=== PATIENT | male | born 1980 | race Caucasian/White ===

== ENCOUNTER 2018-05-07 08:51 | Inpatient (IN) | payer BC ==
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
[2018-05-07] MEDS ORDERED: MELATONIN 5 MG TABLETS PO PRN (11:11)
[2018-05-07] MEDS ORDERED: MAG HYDROX/AL HYDROX/SIMETH 30 ML UNIT-DOSE CUP PO PRN (11:11)
[2018-05-07] MEDS ORDERED: P-EPHED 60MG/TRIPROLIDI 2.5MG TABLET PO PRN (11:11)
[2018-05-07] MEDS ORDERED: MAGNESIUM CITRATE 300 ML BOTTLE PO PRN (11:11)
[2018-05-07] MEDS ORDERED: ACETAMINOPHEN 325 MG TABLET (FP) PO PRN ×2 (11:11)
[2018-05-07] MEDS ORDERED: BISMUTH SUBSALICYLATE 262 MG/15 ML BTL PO PRN (11:11)
[2018-05-07] MEDS ORDERED: cloNIDine HCL 0.1 MG TABLET PO PRN (11:11)
[2018-05-07] MEDS ORDERED: MENTHOL/PHENOL 1 EACH UD MM PRN (11:11)
[2018-05-07] MEDS ORDERED: MAGNESIUM HYDROX 2400MG/30ML ORAL SUSPENSION 30 ML CUP PO PRN (11:11)
[2018-05-07] MEDS ORDERED: IBUPROFEN 400 MG TABLET (FP) PO PRN (11:11)
[2018-05-07] MEDS ORDERED: METHADONE HCL 10 MG TABLET (FOR DETOX USE ONLY) PO ONE ×2 (11:45→23:00)
[2018-05-07] MEDS: NICOTINE 21 MG/24 HOURS TOPICAL PATCH TD SCH (12:33)
[2018-05-07] MEDS: ONDANSETRON *ODT* 4 MG TABLET SL PRN (13:33)
[2018-05-07] MEDS: diazePAM 5 MG TABLET PO SCH ×2 (14:11→22:42)
[2018-05-07 14:31] LABS: HEMATOCRIT 36.7 % (35.4-49); HEMOGLOBIN 12.3 GM/dL (11.7-16.9); MCH 28.2 pg (25.7-33.7); MCHC 33.5 g/dl (32.0-35.9); MEAN PLT VOLUME 7.9 fl (7.5-11.1); PLATELET COUNT 177 K/MM3 (134-434); RBC 4.37 M/mm3 (4.00-5.60); RDW 13.3 % (11.9-15.9)
[2018-05-07 14:49] LABS: ALBUMIN 3.6 g/dl (3.4-5.0); ALK PHOS 67 U/L (45-117); ANION GAP 3 MMOL/L (8-16); BILIRUBIN,TOTAL 0.4 mg/dL (0.2-1); BLOOD UREA NITROGEN 15 mg/dL (7-18); CALCIUM 8.6 mg/dL (8.5-10.1); CHLORIDE 104 mmol/L (98-107); CO2 31 mmol/L (21-32); GLUCOSE,RANDOM 93 mg/dL (74-106); POTASSIUM 4.3 mmol/L (3.5-5.1); SGOT/AST 20 U/L (15-37); SGPT/ALT 20 U/L (13-61); SODIUM 139 mmol/L (136-145)
[2018-05-07] MEDS: diazePAM 5 MG TABLET PO PRN (19:51)
[2018-05-07 19:55] LABS: PH,URINE 5.5 (5.0-8.0); URINE APPEARANCE TURBID; URINE BILIRUBIN NEGATIVE (NEGATIVE); URINE COLOR DK YELLOW; URINE GLUCOSE (UA) NEGATIVE (NEGATIVE); URINE KETONE TRACE (NEGATIVE); URINE LEUK ESTERASE NEGATIVE (NEGATIVE); URINE NITRITE NEGATIVE (NEGATIVE); URINE PROTEIN NEGATIVE (NEGATIVE)
[2018-05-07] MEDS: THIAMINE HCL 100 MG TABLET (FP) PO SCH (22:42)
[2018-05-08] MEDS: diazePAM 5 MG TABLET PO SCH ×3 (05:40→21:30)
[2018-05-08] MEDS: diazePAM 5 MG TABLET PO PRN ×2 (09:50→17:23)
[2018-05-08] MEDS: PRENATAL VITAMINS W/ FOLIC ACID TABLET (FP) PO SCH (09:50)
[2018-05-08] MEDS: ONDANSETRON *ODT* 4 MG TABLET SL PRN (09:50)
[2018-05-08] MEDS: NICOTINE 21 MG/24 HOURS TOPICAL PATCH TD SCH (09:51)
[2018-05-08] MEDS ORDERED: METHADONE HCL 10 MG TABLET (FOR DETOX USE ONLY) PO ONE (10:00)
--- NOTE | 2018-05-08 10:08 | EKG ---
Test Reason : Blood Pressure : / mmHG Vent. Rate : 053 BPM Atrial Rate : 053 BPM P-R Int : 126 ms QRS Dur : 100 ms QT Int : 442 ms P-R-T Axes : 053 061 052 degrees QTc Int : 414 ms SINUS BRADYCARDIA OTHERWISE NORMAL ECG NO PREVIOUS ECGS AVAILABLE Confirmed by MAX DOSHI, TONY ([id number]) on 05/08/2018 10:08:34 AM Referred By: Confirmed By:TONY SANTANA MD
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
--- NOTE | 2018-05-08 10:44 | PN ---
[facility] CIWA - CIWA Score Nausea/Vomitin-Mild Nausea/No Vomiting Muscle Tremors: 2 Anxiety: 2 Agitation: 2 Paroxysmal Sweats: 1-Minimal Palms Moist Orientation: 0-Oriented Tacttile Disturbances: 0-None Auditory Disturbances: 0-None Visual Disturbances: 0-None Headache: 1-Very Mild CIWA-Ar Total Score: 9 [facility] COWS - Scale Sweatin= Chills/Flushing Restless Observation: 1= Difficult to Sit Still Pupil Size: 1= Pupils >than Normal Bone or Joint Aches: 1= Mild Discomfort Runny Nose/ Eye Tearin= Nasal Congestion GI Upset > 30mins: 1= Stomach Cramp Tremor Observation of Outstretched Hands: 2= Slight Tremor Visible Yawning Observation: 0= None Anxiety or Irritability: 2=Irritable/Anxious Goose Flesh Skin: 0=Smooth Skin S Progress Note (SOAP) Subjective: pt states he feels nauseous, feels like he has withdrawal Sx O: Vital Signs - 24 hr 05/07/18 05/07/18 05/08/18 16:50 21:12 00:30 Temperature 97.9 F 98.1 F Pulse Rate 77 69 Respiratory 18 18 18 Rate Blood Pressure 140/63 117/81 05/08/18 05/08/18 05/08/18 03:30 07:48 09:06 Temperature 97.7 F 98.2 F Pulse Rate 76 78 Respiratory 18 18 18 Rate Blood Pressure 111/70 129/78 Laboratory Tests 05/07/18 05/07/18 05/07/18 11:15 11:15 11:15 WBC 4.0 RBC 4.37 Hgb 12.3 Hct 36.7 MCV 84.0 MCH 28.2 MCHC 33.5 RDW 13.3 Plt Count 177 MPV 7.9 Sodium 139 Potassium 4.3 Chloride 104 Carbon Dioxide 31 Anion Gap 3 L BUN 15 Creatinine 1.0 Creat Clearance w eGFR 83.63 Random Glucose 93 Calcium 8.6 Total Bilirubin 0.4 AST 20 ALT 20 Alkaline Phosphatase 67 Total Protein 7.0 Albumin 3.6 Urine Color Urine Appearance Urine pH Ur Specific Anna Urine Protein Urine Glucose (UA) Urine Ketones Urine Blood Urine Nitrite Urine Bilirubin Urine Urobilinogen Ur Leukocyte Esterase RPR Titer Nonreactive 05/07/18 16:40 WBC RBC Hgb Hct MCV MCH MCHC RDW Plt Count MPV Sodium Potassium Chloride Carbon Dioxide Anion Gap BUN Creatinine Creat Clearance w eGFR Random Glucose Calcium Total Bilirubin AST ALT Alkaline Phosphatase Total Protein Albumin Urine Color Dk yellow Urine Appearance Turbid Urine pH 5.5 Ur Specific Anna 1.031 Urine Protein Negative Urine Glucose (UA) Negative Urine Ketones Trace H Urine Blood Negative Urine Nitrite Negative Urine Bilirubin Negative Urine Urobilinogen 1.0 Ur Leukocyte Esterase Negative RPR Titer labs and VS WNL a/p: continue alcohol and heroin detox protocols pt has prn meds: valium, clonidine and vistaril for Sx relief
[2018-05-08] MEDS: NICOTINE POLACRILEX 2 MG GUM BUC PRN (13:23)
[2018-05-08] MEDS: hydrOXYzine PAMOATE 25 MG CAPSULE (FP) PO PRN (21:29)
[2018-05-08] MEDS: THIAMINE HCL 100 MG TABLET (FP) PO SCH (21:30)
[2018-05-08] MEDS: cloNIDine HCL 0.1 MG TABLET PO PRN (21:30)
[2018-05-09] MEDS ORDERED: diazePAM 5 MG TABLET PO ONE (06:00)
--- NOTE | 2018-05-09 09:36 | PN ---
S CIWA - CIWA Score Nausea/Vomitin Muscle Tremors: 2 Anxiety: 2 Agitation: 2 Paroxysmal Sweats: 1-Minimal Palms Moist Orientation: 0-Oriented Tacttile Disturbances: 1-Very Mild Itch/Numbness Auditory Disturbances: 1-Very Mild Visual Disturbances: 0-None Headache: 2-Mild CIWA-Ar Total Score: 13 [facility] COWS - Scale Resting Pulse: 0= IN 80 or Below Sweatin= Chills/Flushing Restless Observation: 1= Difficult to Sit Still Pupil Size: 1= Pupils >than Normal Bone or Joint Aches: 2= Severe Diffuse Aches Runny Nose/ Eye Tearin= Runny Nose/Eyes GI Upset > 30mins: 2= Nausea/Diarrhea Tremor Observation of Outstretched Hands: 2= Slight Tremor Visible Yawning Observation: 1= 1-2x During Session Anxiety or Irritability: 2=Irritable/Anxious Goose Flesh Skin: 0=Smooth Skin COWS Score: 14 S Progress Note (SOAP) Subjective: alert,irritable,anxious,interrupted sleep,tremor,pain in the body and back Objective: 05/09/18 09:35 Vital Signs Temperature 97.7 F 05/09/18 07:30 Pulse Rate 69 05/09/18 07:30 Respiratory Rate 18 05/09/18 07:30 Blood Pressure 103/72 05/09/18 07:30 O2 Sat by Pulse Oximetry (%) 05/09/18 09:35 Laboratory Last Values WBC 4.0 K/mm3 (4.0-10.0) 05/07/18 11:15 RBC 4.37 M/mm3 (4.00-5.60) 05/07/18 11:15 Hgb 12.3 GM/dL (11.7-16.9) 05/07/18 11:15 Hct 36.7 % (35.4-49) 05/07/18 11:15 MCV 84.0 fl (80-96) 05/07/18 11:15 MCH 28.2 pg (25.7-33.7) 05/07/18 11:15 MCHC 33.5 g/dl (32.0-35.9) 05/07/18 11:15 RDW 13.3 % (11.9-15.9) 05/07/18 11:15 Plt Count 177 K/MM3 (134-434) 05/07/18 11:15 MPV 7.9 fl (7.5-11.1) 05/07/18 11:15 Sodium 139 mmol/L (136-145) 05/07/18 11:15 Potassium 4.3 mmol/L (3.5-5.1) 05/07/18 11:15 Chloride 104 mmol/L (98-107) 05/07/18 11:15 Carbon Dioxide 31 mmol/L (21-32) 05/07/18 11:15 Anion Gap 3 MMOL/L (8-16) L 05/07/18 11:15 BUN 15 mg/dL (7-18) 05/07/18 11:15 Creatinine 1.0 mg/dL (0.55-1.3) 05/07/18 11:15 Creat Clearance w eGFR 83.63 (>60) 05/07/18 11:15 Random Glucose 93 mg/dL (74-106) 05/07/18 11:15 Calcium 8.6 mg/dL (8.5-10.1) 05/07/18 11:15 Total Bilirubin 0.4 mg/dL (0.2-1) 05/07/18 11:15 AST 20 U/L (15-37) 05/07/18 11:15 ALT 20 U/L (13-61) 05/07/18 11:15 Alkaline Phosphatase 67 U/L (45-117) 05/07/18 11:15 Total Protein 7.0 g/dl (6.4-8.2) 05/07/18 11:15 Albumin 3.6 g/dl (3.4-5.0) 05/07/18 11:15 Urine Color Dk yellow 05/07/18 16:40 Urine Appearance Turbid 05/07/18 16:40 Urine pH 5.5 (5.0-8.0) 05/07/18 16:40 Ur Specific Aylett 1.031 (1.010-1.035) 05/07/18 16:40 Urine Protein Negative (NEGATIVE) 05/07/18 16:40 Urine Glucose (UA) Negative (NEGATIVE) 05/07/18 16:40 Urine Ketones Trace (NEGATIVE) H 05/07/18 16:40 Urine Blood Negative (NEGATIVE) 05/07/18 16:40 Urine Nitrite Negative (NEGATIVE) 05/07/18 16:40 Urine Bilirubin Negative (NEGATIVE) 05/07/18 16:40 Urine Urobilinogen 1.0 mg/dL (0.2-1.0) 05/07/18 16:40 Ur Leukocyte Esterase Negative (NEGATIVE) 05/07/18 16:40 RPR Titer Nonreactive (NONREACTIVE) 05/07/18 11:15 Assessment: 05/09/18 09:36 withdrawal symptom Plan: continue detox
[2018-05-09] MEDS: ONDANSETRON *ODT* 4 MG TABLET SL PRN (09:43)
[2018-05-09] MEDS ORDERED: METHADONE HCL 10 MG TABLET (FOR DETOX USE ONLY) PO ONE (10:00)
[2018-05-09] MEDS: PRENATAL VITAMINS W/ FOLIC ACID TABLET (FP) PO SCH (10:05)
[2018-05-09] MEDS: NICOTINE 21 MG/24 HOURS TOPICAL PATCH TD SCH (10:06)
[2018-05-09] MEDS: cloNIDine HCL 0.1 MG TABLET PO PRN ×2 (10:06→21:57)
[2018-05-09] MEDS: diazePAM 5 MG TABLET PO PRN ×3 (10:07→19:19)
[2018-05-09] MEDS: SERTRALINE HCL 50 MG TABLET (FP) PO SCH (10:52)
[2018-05-09] MEDS: SUVOREXANT 10 MG TABLET PO PRN (21:57)
[2018-05-09] MEDS: THIAMINE HCL 100 MG TABLET (FP) PO SCH (21:57)
[2018-05-10] MEDS: diazePAM 5 MG TABLET PO PRN ×2 (05:50→10:09)
[2018-05-10] MEDS: ONDANSETRON *ODT* 4 MG TABLET SL PRN (07:40)
[2018-05-10] MEDS ORDERED: METHADONE HCL 10 MG TABLET (FOR DETOX USE ONLY) PO ONE (10:00)
[2018-05-10] MEDS: SERTRALINE HCL 50 MG TABLET (FP) PO SCH (10:06)
[2018-05-10] MEDS: PRENATAL VITAMINS W/ FOLIC ACID TABLET (FP) PO SCH (10:06)
[2018-05-10] MEDS: NICOTINE 21 MG/24 HOURS TOPICAL PATCH TD SCH (10:06)
--- NOTE | 2018-05-10 10:17 | PN ---
S Progress Note (SOAP) Subjective: alert,irritable,anxious,interrupted sleep, Objective: 05/10/18 10:17 Vital Signs Temperature 98.0 F 05/10/18 09:29 Pulse Rate 64 05/10/18 09:29 Respiratory Rate 18 05/10/18 09:29 Blood Pressure 117/74 05/10/18 09:29 O2 Sat by Pulse Oximetry (%) Assessment: 05/10/18 10:17 withdrawal symptom Plan: continue detox,discharge in am
[2018-05-10] MEDS: METHOCARBAMOL 500 MG TABLET PO PRN (15:13)
[2018-05-10] MEDS: hydrOXYzine PAMOATE 25 MG CAPSULE (FP) PO PRN ×2 (15:13→22:14)
[2018-05-10 17:44] VITALS: TEMP 98.2
[2018-05-10] MEDS: THIAMINE HCL 100 MG TABLET (FP) PO SCH (22:14)
[2018-05-10] MEDS: SUVOREXANT 10 MG TABLET PO PRN (22:14)
[2018-05-11] MEDS: METHOCARBAMOL 500 MG TABLET PO PRN (03:15)
[2018-05-11] MEDS ORDERED: METHADONE HCL 5 MG TABLET (FOR DETOX USE ONLY) PO ONE (06:00)
[2018-05-11 06:15] VITALS: BP 121/75; PULSE 66
[2018-05-11] MEDS: NICOTINE POLACRILEX 2 MG GUM BUC PRN (06:17)
[2018-05-11] MEDS: ONDANSETRON *ODT* 4 MG TABLET SL PRN (06:36)
--- NOTE | 2018-05-11 14:18 | DS ---
[facility] Detox Discharge Summary Admission Date: 05/07/18 Discharge Date: 05/11/18 - History Additional Comments: pt was discharged and had left the unit prior to this provider arriving the unit. Per Counselor, pt went home and was going to do aftercare by attending outpatient rehab. Per OIL INSPECTOR and RNs, pt was not in any acute distress prior to leaving unit Vital Signs Temperature 98.2 F 05/11/18 06:00 Pulse Rate 66 05/11/18 06:00 Respiratory Rate 18 05/11/18 06:00 Blood Pressure 121/75 05/11/18 06:00 O2 Sat by Pulse Oximetry (%) - Physical Exam Results Vital Signs: Vital Signs Temperature 98.2 F 05/11/18 06:00 Pulse Rate 66 05/11/18 06:00 Respiratory Rate 18 05/11/18 06:00 Blood Pressure 121/75 05/11/18 06:00 O2 Sat by Pulse Oximetry (%) - Treatment Hospital Course: Detox Protocol Followed, Detoxed Safely, Responded well, Discharged Condition Good, Rehab Referral Accepted - Medication Discharge Medications: Ambulatory Orders Promethazine HCl 25 mg PO BID 05/07/18 propRANOLol HCL [Inderal] 60 mg PO DAILY 05/07/18 - AMA Did Patient Leave Against Medical Advice: No
== END 2018-05-11 08:55 | disposition home or self-care (01) | DRG 773 ==
LOC: YASAS 08:51 → Y6N 11:39
PROVIDERS: ADMIT Surgery; ATTEND Surgery
PROC: HZ2ZZZZ Detoxification Services for Substance Abuse Treatment (ICD-10-PCS; principal; 2018-05-07)
DX: F11.23 Opioid dependence with withdrawal (principal); F13.230 Sedative, hypnotic or anxiolytic dependence with withdrawal, uncomplicated; F14.20 Cocaine dependence, uncomplicated; F12.20 Cannabis dependence, uncomplicated; F19.280 Other psychoactive substance dependence with psychoactive substance-induced anxiety disorder; F19.282 Other psychoactive substance dependence with psychoactive substance-induced sleep disorder; F43.10 Post-traumatic stress disorder, unspecified; F41.8 Other specified anxiety disorders; F32.9 Major depressive disorder, single episode, unspecified; G43.909 Migraine, unspecified, not intractable, without status migrainosus; G40.909 Epilepsy, unspecified, not intractable, without status epilepticus; Z87.820 Personal history of traumatic brain injury; Z91.5 Personal history of self-harm; Z59.0 Homelessness
CPT/HCPCS: 36415; 80053; 81003; 85027; 86593; 93005; 93010; J0735; Q0162